=== PATIENT | female | born 1955 | race Caucasian/White ===

== ENCOUNTER → 2017-03-16 | Outpatient (CLI) | payer BC ==
[2017-03-16 13:09] LABS: ESTIMATED AVERAGE GLUCOSE 123 mg/dl; HA1C FLAG Normal (Normal)
[2017-03-16 14:49] LABS: CALCIUM 9.2 mg/dl (8.5-10.1)
[2017-03-16 14:52] LABS: ALT/SGPT 26 U/L (12-78); AST/SGOT 15 U/L (15-37); BLOOD UREA NITROGEN 8 mg/dl (7-18); CARBON DIOXIDE 29 mmol/L (21-32); CHLORIDE 104 mmol/L (98-107); CREATININE 0.72 mg/dl (0.60-1.20); GLUCOSE 119 mg/dl (70-99); POTASSIUM 3.4 mmol/L (3.5-5.1); SODIUM 141 mmol/L (136-145)
[2017-03-16 14:58] LABS: ALB/GLOB RATIO 1.1 (0.9-2); ALKALINE PHOSPHATASE 103 U/L (45-117); CHOLESTEROL 224 mg/dl (0-200); CHOLESTEROL/HDL RATIO 3.5; HDL CHOLESTEROL 64 mg/dl; LDL CHOLESTEROL CALCULATED 125 mg/dl; TRIGLYCERIDES 177 mg/dl (0-150); VERY LOW DENSITY LIPOPROT CALC 35 mg/dl
== END | disposition home or self-care (01) ==
LOC: C.LABPBG 07:27
PROVIDERS: ATTEND Internal Medicine
DX: E78.5 Hyperlipidemia, unspecified (principal); I10 Essential (primary) hypertension; R73.03 Prediabetes; E03.9 Hypothyroidism, unspecified

== ENCOUNTER → 2017-07-09 | Outpatient (CLI) | payer BC ==
[~2017-07-09] MED LIST: OPTIRAY 320 IV PRN
--- NOTE | 2017-07-09 12:30 | DIAGNOSTIC IMAGING REPORT ---
CT SCAN OF THE ABDOMEN AND PELVIS WITH IV CONTRAST CLINICAL HISTORY: Left inguinal hernia. COMPARISON STUDY: Abdominal CT dated 08/07/2014. TECHNIQUE: Following the IV administration of 94 cc of Optiray 320, CT scan of the abdomen and pelvis is performed from the lung bases to the proximal femora. Images are reviewed in the axial, sagittal, and coronal planes. IV contrast was administered without complication. A dose lowering technique was utilized adhering to the principles of ALARA. CT DOSE: 734.22 mGy.cm FINDINGS: Lung bases: The heart is normal in size and without pericardial effusion. Small fat-containing Bochdalek hernias are present at both lung bases. The lung bases are otherwise clear. There is a tiny hiatal hernia. Liver: The contrast-enhanced liver is normal in size, contour, and attenuation. There is no intrahepatic biliary ductal dilatation. The hepatic veins and portal veins are patent. Gallbladder: Surgically absent noting clips in the gallbladder fossa. Spleen: Normal in size and attenuation. Pancreas: Unremarkable. Adrenal glands: Unremarkable. Kidneys: The contrast enhanced kidneys are normal in size and without hydronephrosis. The kidneys enhance symmetrically. Abdominal vasculature: The abdominal aorta is normal in course and caliber noting moderate atherosclerotic calcification. Bowel: There is mild colonic diverticulosis without CT evidence of acute diverticulitis. No bowel obstruction is seen. The appendix is well-visualized and normal. Peritoneum: There is no intraperitoneal free air or abdominal ascites. There is a small fat-containing umbilical hernia. Lymphadenopathy: None. Pelvic viscera: The bladder is decompressed and grossly unremarkable. The uterus and adnexa are normal as visualized. there is a small fat-containing left inguinal hernia. Skeletal structures: The skeletal structures are osteopenic. There is mild to moderate lumbosacral spondylosis and scoliosis. No lytic or blastic lesions are seen. IMPRESSION: 1. There are no acute infectious or inflammatory findings in the abdomen or pelvis. 2. There is a small fat-containing left inguinal hernia identified as clinically queried. No bowel is seen within the hernia sac. 3. Mild colonic diverticulosis without CT evidence of acute diverticulitis. 4. Additional findings as above. Electronically signed by: Cuco Gallardo M.D. 07/09/2017 12:29 PM Dictated Date/Time: 07/09/2017 12:20 PM
== END | disposition home or self-care (01) ==
LOC: C.CTS 09:39
PROVIDERS: ATTEND Internal Medicine
DX: K40.90 Unilateral inguinal hernia, without obstruction or gangrene, not specified as recurrent (principal)

== ENCOUNTER → 2018-01-03 | Outpatient (CLI) | payer BC ==
[2018-01-03 12:31] LABS: BASO % 1.2 %; BASO ABS # 0.06 K/uL (0-0.2); EOS % 2.3 %; EOS ABS # 0.11 K/uL (0-0.5); HEMATOCRIT 40.3 % (37-47); HEMOGLOBIN 12.9 g/dL (12.0-16.0); IG# 0.01 K/uL (0.00-0.02); LYMPH % 16.6 %; LYMPH ABS # 0.81 K/uL (1.2-3.4); MEAN CELL VOLUME 86.1 fL (80-100); MEAN CORPUSCULAR HEMOGLOBIN 27.6 pg (25-34); MEAN PLATELET VOLUME 11.3 fL (7.4-10.4); MONO % 7.4 %; MONO ABS # 0.36 K/uL (0.11-0.59); NEUT % 72.3 %; NEUT ABS # 3.53 K/uL (1.4-6.5); PLATELET COUNT 351 K/uL (130-400); RED CELL DISTRIBUTION WIDTH CV 14.9 % (11.5-14.5); RED CELL DISTRIBUTION WIDTH SD 46.5 fL (36.4-46.3); WHITE BLOOD COUNT 4.88 K/uL (4.8-10.8)
[2018-01-03 13:11] LABS: ALBUMIN 3.7 gm/dl (3.4-5.0); ALT/SGPT 24 U/L (12-78); AST/SGOT 12 U/L (15-37); BLOOD UREA NITROGEN 9 mg/dl (7-18); CALCIUM 9.2 mg/dl (8.5-10.1); CARBON DIOXIDE 27 mmol/L (21-32); CREATININE 0.84 mg/dl (0.60-1.20); GLUCOSE 102 mg/dl (70-99); POTASSIUM 3.6 mmol/L (3.5-5.1); SODIUM 139 mmol/L (136-145)
[2018-01-03 13:17] LABS: HEMOGLOBIN A1C 5.6 % (4.5-5.6)
[2018-01-03 13:23] LABS: ALKALINE PHOSPHATASE 104 U/L (45-117); CHOLESTEROL 190 mg/dl (0-200); LDL CHOLESTEROL CALCULATED 102 mg/dl; TOTAL PROTEIN 7.4 gm/dl (6.4-8.2)
== END | disposition home or self-care (01) ==
LOC: C.LABPBG 08:54
PROVIDERS: ATTEND Internal Medicine
DX: I10 Essential (primary) hypertension (principal); M79.7 Fibromyalgia; E03.9 Hypothyroidism, unspecified; R73.03 Prediabetes; E78.5 Hyperlipidemia, unspecified; Z68.33 Body mass index [BMI] 33.0-33.9, adult; F43.20 Adjustment disorder, unspecified